=== PATIENT | male | born 1965 | race African-American/Black ===

== ENCOUNTER 2017-04-05 06:38 | Day surgery (SDC) | payer MEDICARE, MEDICAID ==
[~2017-04-05] VITALS: Ht 182.9 cm; Wt 113.0 kg
[~2017-04-05 06:38] MED LIST: ASPI-535 PO; CALC500T99 PO; CALC667C PO; DIPH25CA6 PO; ERGO500037 PO; GLIP5TAB13 PO; HYDR-3010 PO; MIDO5TAB19 PO; MULT-552 PO; NEPH PO; SIMV10TA6 PO; SUCR500T PO; TRAM-40 PO; VIT1TABL PO; ZOC10 PO
--- NOTE | 2017-04-05 08:28 | RADRPT ---
PROCEDURE: XR Chest. CLINICAL INDICATION: Preop, fistulogram TECHNIQUE: Frontal view of the chest was obtained. COMPARISON: 05/08/2016 FINDINGS: The cardiomediastinal silhouette is within normal limits. The lungs are clear. No pleural effusion or pneumothorax is identified. Right hemidiaphragm remains moderately elevated. Visualized osseou s structures are intact. IMPRESSION: No evidence of active cardiopulmonary disease. Persistent moderately elevated right hemidiaphragm. RPTAT: VV .Livan Leon MD, Date Time Electronically viewed and signed by .Livan Leon MD, on 04/05/2017 08:28 .O/
[2017-04-05 08:34] LABS: BASOPHILS % 0.4 % (0.0-2.0); EOSINOPHILS # 0.2 10^3/ul (0.0-0.5); EOSINOPHILS % 3.5 % (0.0-7.0); HEMATOCRIT 33.9 % (42.0-52.0); HEMOGLOBIN 10.9 g/dl (14.0-18.0); LYMPHOCYTES # 1.3 10^3/ul (0.8-2.9); LYMPHOCYTES % 26.1 % (15.0-51.0); MEAN CORPUSCULAR HGB CONC 32.2 g/dl (32.0-37.0); MEAN CORPUSCULAR VOLUME 93.4 fl (82.0-101.0); MONOCYTE # 0.4 10^3/ul (0.3-0.9); MONOCYTES % 7.7 % (0.0-11.0); NEUTROPHILS % 61.7 % (39.0-77.0); PLATELET COUNT 132 10^3/UL (140-415); POSITIVE DIFF @See below; RED BLOOD COUNT 3.63 10^6/ul (4.70-6.10); RED CELL DISTRIBUTION WIDTH 14.7 % (11.5-14.5); WHITE BLOOD COUNT 4.9 10^3/ul (4.8-10.8)
[2017-04-05 08:35] VITALS: BP 153/78; PULSE 98; RESP 18
[2017-04-05 08:38] VITALS: Ht 182.9 cm; Wt 113.0 kg
[2017-04-05 08:38] LABS: MEAN PLATELET VOLUME 11.9 fl (7.4-10.4)
[2017-04-05 08:49] LABS: INR 0.96; PROTIME 12.8 Sec (12.2-14.2)
[2017-04-05 08:50] LABS: PARTIAL THROMBOPLASTIN TIME 25.3 Sec (25.0-35.0)
[2017-04-05 09:01] LABS: CALCIUM 9.1 mg/dl (8.4-10.2); CREATININE 16.15 mg/dl (0.61-1.24); POTASSIUM 4.3 mmol/L (3.5-5.1)
--- NOTE | 2017-04-05 09:52 | HPN ---
Date/Time of Note Date/Time of Note DATE: 04/05/17 TIME: 09:52 Interval H&P Admission Note Pt. seen H&P reviewed: No system changes VITALIY JACKSON MD Apr 05, 2017 09:52
[2017-04-05] MEDS ORDERED: LIDOCAINE 1% (MDV) 20 ML INJ ONE (09:55)
[2017-04-05] MEDS ORDERED: IODIXANOL LOCM 100 ML BTL ONE (09:55)
[2017-04-05] MEDS ORDERED: HEPARIN 1000 UNITS/NS (A-LINE) 1,000 ML ONE (09:55)
--- NOTE | 2017-04-05 09:55 | CONS ---
Date/Time of Note Date/Time of Note DATE: 04/05/17 TIME: 09:54 Consultation Date/Type/Reason Admit Date/Time Hx of Present Illness VASCULAR SURGERY H&P NOTE FOR PROCEDURE Dear Doctors: Mr. Cardoso is a 51-year-old gentleman with a history of end-stage renal disease in which he underwent a left brachiocephalic fistula creation. Subsequently the patient underwent superficialization, as they had difficulty with his maturation and cannulation. Further, the patient had areas of high velocities, stenosis and not maturing well, in which he underwent a fistulogram and intervention. The patient had undergone venoplasty in the area of the arterial anastomosis where he has neointimal hyperplasia. Post his intervention , his flow volume had improved and the fistula matured. The patient has no complaints of his dialysis sessions, mentions that they have not been raising issues. He did have a fistula ultrasound screening to evaluate his neointimal hyperplasia, in which identified the patient has velocities that are close to 700 in the area and he still has the distal aspect of the cephalic vein near the axillary level which is also low diameter. PHYSICAL EXAMINATION: GENERAL: Alert and oriented x3. LUNGS: Clear to auscultation bilaterally. HEART: S1, S2 present. ABDOMEN: Soft, nontender, nondistended. Bowel sounds positive. EXTREMITIES: Left upper extremity palpable brachial pulse. Motor and sensory intact. Cap refill of 2 to 3 seconds. Surgical scar is well healed. Fistula with bruit and thrill present. ASSESSMENT AND PLAN: 1. End-stage renal disease: It seems the patient has been coming along well with his left upper extremity brachiocephalic fistula. He does have areas of neointimal hyperplasia near the anastomotic sites and still a non-maturing distal cephalic vein near the cephalic arch. Therefore, we will plan to obtain a fistulogram, with possible re-intervention. 2. Optimize vascular status (BP meds, diet, nutrition, exercise, sugar control , antiplatelets). 3. Discussed weight loss. 4. Discussed findings, plan and management with the patient, and he understands. Thank you for allowing us to partake in the care of your patient. Please call with any questions. Social History Smoking Status: Never smoker Exam/Review of Systems Vital Signs Vitals Vital Signs Date Time Temp Pulse Resp B/P Pulse Ox O2 Delivery O2 Flow Rate FiO2 04/05/17 08:35 97.5 98 18 153/78 98 Room Air Results Result Diagram: 04/05/17 0800 04/05/17 0800 Results 24 hrs Laboratory Tests Test 04/05/17 08:00 White Blood Count 4.9 Red Blood Count 3.63 L Hemoglobin 10.9 L Hematocrit 33.9 L Mean Corpuscular Volume 93.4 Mean Corpuscular Hemoglobin 30.0 Mean Corpuscular Hemoglobin Concent 32.2 Red Cell Distribution Width 14.7 H Platelet Count 132 L Mean Platelet Volume 11.9 #H Neutrophils % 61.7 Lymphocytes % 26.1 Monocytes % 7.7 Eosinophils % 3.5 Basophils % 0.4 Nucleated Red Blood Cells % 0.0 Neutrophils # 3.0 Lymphocytes # 1.3 Monocytes # 0.4 Eosinophils # 0.2 Basophils # 0.0 Nucleated Red Blood Cells # 0.0 Prothrombin Time 12.8 Prothrombin Time Ratio 1.0 INR International Normalized Ratio 0.96 Activated Partial Thromboplast Time 25.3 Sodium Level 142 Potassium Level 4.3 Chloride Level 98 Carbon Dioxide Level 24 Anion Gap 24 H Blood Urea Nitrogen 68 H Creatinine 16.15 H Glucose Level 118 Calcium Level 9.1 VITALIY JACKSON MD Apr 05, 2017 09:55
[2017-04-05] MEDS ORDERED: HEPARIN 1000 UNITS/ML 10 ML INJ ONE (10:16)
[2017-04-05 10:30] VITALS: BP 152/74; PULSE 85; RESP 16
--- NOTE | 2017-04-05 10:34 | OPR ---
Date/Time of Note Date/Time of Note DATE: 04/05/17 TIME: 10:27 Operative Report Free Text/Dictation DATE OF OPERATION: 04/05/2017 SURGEON: Oscar Jackson MD PREOPERATIVE DIAGNOSIS: malfunctioning Left upper extremity AVF POSTOPERATIVE DIAGNOSIS: Same ANESTHESIA: Local BLOOD LOSS: minimal COMPLICATIONS: None. HEPARIN: None CONTRAST: As recorded ACCESS: 6Fr sheath LUE Fistula CLOSURE: Manual compression & 3-0 nylon suture INDICATIONS: This is a 51-year-old male whom had presented with increased velocities indicating neointimal hyperplasia in the fistula. Patient has been informed of the alternatives, risks, and benefits of angiogram, balloon angioplasty and stenting. Risks including but not limited to bleeding, thrombosis, embolization, myocardial infarction, , device malfunction, infection, and nephrotoxicity and patient has agreed to proceed. This is the first diagnostic angiogram in this clinical setting PROCEDURE: 1. Ultrasound guided access of left Upper extremity fistula 2. Left upper extremity fistulogram 3. Central Venogram (subclavian vein, Superior Vena Cava, Internal jugular vein) 4. Left basilic vein venoplasty 8x80mm balloon FINDINGS: Patent fistula with mild to moderate stenosis through the proximal and mid basilic vein Patent axillary vein Patent left subclavian vein with mild stenosis Patent left brachiocephalic vein with mild stenosis Patent superior vena cava patent brachial artery with mild disease DESCRIPTION OF THE PROCEDURE: The patient was brought to the angio suite and positioned in the supine position on the fluoroscopic table. Sedation was administered without complication. Left upper extremity was shaved, prepped and draped in the standard sterile fashion. A time-out and the appropriate site was marked and confirmed. Local anesthesia was infiltrated in the region of the left upper extremity fistula. The fistula was cannulated with a micro access needle under ultrasound guidance and a guide wire advanced into the cephalic vein under fluoroscopic guidance. The needle was removed and a glide catheter as placed. Multi-station fistulogram and venogram was conducted of the upper extremity and the central veins. Findings noted above. Rizo wire was then passed through the microcatheter and placed in the left brachiocephalic vein. The catheter was then exchanged with a short 6-Citizen [place] sheath. Balloon angioplasty of the central veins were performed of the left basilic vein using [id number] balloon. completion venogram demonstrated improved radiographic flow through the areas of previous stenosis. At this point the balloon, sheath and wire were removed and using a 3-0 Nylon suture the puncture site was closed. Patient was taken to the recovery unit in fair condition. PLAN: We'll schedule the patient for close fistula surveillance OSCAR JACKSON MD Apr 05, 2017 10:34
--- NOTE | 2017-04-05 19:30 | RADRPT ---
Vent Rate: 81 bpm RR Interval: 0 msec ID Interval: 196 msec QRS Duration: 98 msec QT Interval: 376 msec QTC Interval: 436 msec P-R-T [place]: 57 - 46 - 68 degrees Normal sinus rhythm Normal ECG Electronically Signed By: Michael Ma [id number]
== END 2017-04-05 11:25 | disposition home or self-care (01) ==
LOC: SDS 06:38
PROVIDERS: ATTEND Student in an Organized Health Care Education/Training Program
DX: T82.590A Other mechanical complication of surgically created arteriovenous fistula, initial encounter (principal); Y84.1 Kidney dialysis as the cause of abnormal reaction of the patient, or of later complication, without mention of misadventure at the time of the procedure; Y92.89 Other specified places as the place of occurrence of the external cause; I12.0 Hypertensive chronic kidney disease with stage 5 chronic kidney disease or end stage renal disease; N18.6 End stage renal disease
CPT/HCPCS: 36901; 36902; 71010; 80048; 85025; 85610; 85730; 93005; C1725; C1769; C1894; J1644; Q9967

== ENCOUNTER 2017-10-04 11:22 | Day surgery (SDC) | END 2017-10-04 17:10 | disposition home or self-care (01) ==

== ENCOUNTER 2017-12-27 11:59 | Day surgery (SDC) | END 2017-12-27 16:20 | disposition home or self-care (01) ==

== ENCOUNTER 2018-05-11 14:14 | Day surgery (SDC) | END 2018-05-11 17:46 | disposition home or self-care (01) ==

== ENCOUNTER 2018-05-17 12:21 | Day surgery (SDC) | END 2018-05-17 16:18 | disposition home or self-care (01) ==